=== PATIENT | female | born 1960 | race Caucasian/White ===

== ENCOUNTER 2016-11-13 19:40 | Emergency (ER) | payer OTHER ==
--- NOTE | 2016-11-13 19:47 | PDOC ---
History of Present Illness - General History Source: Patient, Family Exam Limitations: No Limitations - History of Present Illness Initial Comments: 11/13/16 20:10 The patient is a 56 year old female, accompanied by , with a significant past medical history of rheumatoid arthritis and sciatica, who presents to the emergency room via EMS s/p a fall from home. The reports he returned from vacation in [place] and found his lying down on the floor and speaking in only one word syllables. The patient denies drinking and states she walked into a closet. The patient is a poor historian and not providing additional information. The reports he spoke to his on the phone approx. 6 hours ago and she was speaking and acting normally. The patient states she went to detox for alcohol within the past month. She denies chest pain or shortness of breath. Allergies: Penicillins, pregabalin <Onur Salvador - Last Filed: 11/13/16 20:32> <Lyric Wallace - Last Filed: 11/13/16 23:00> - General Chief Complaint: Alcohol intoxication Stated Complaint: POSSIBLE INTOXICATION Time Seen by Provider: 11/13/16 19:46 Past History <Onur Salvador - Last Filed: 11/13/16 20:32> <Lyric Wallace - Last Filed: 11/13/16 23:00> - Past Medical History Allergies/Adverse Reactions: Allergies Allergy/AdvReac Type Severity Reaction Status Date / Time Penicillins Allergy Verified 11/13/16 19:45 pregabalin [From Lyrica] Allergy Verified 11/13/16 19:45 Home Medications: Ambulatory Orders Adalimumab [Humira] mg SQ ASDIR 11/13/16 Methotrexate Sodium [Methotrexate] mg PO ASDIR 11/13/16 Review of Systems - Review of Systems Comments:: 11/13/16 20:19 GENERAL/CONSTITUTIONAL: No fever or chills. No weakness. HEAD, EYES, EARS, NOSE AND THROAT: No change in vision. No ear pain or discharge. No sore throat. CARDIOVASCULAR: No chest pain or shortness of breath. RESPIRATORY: No cough, wheezing, or hemoptysis. GASTROINTESTINAL: No nausea, vomiting, diarrhea or constipation. GENITOURINARY: No dysuria, frequency, or change in urination. MUSCULOSKELETAL: No joint or muscle swelling or pain. No neck or back pain. SKIN: No rash NEUROLOGIC: No headache, vertigo, loss of consciousness, or change in strength/ sensation. ENDOCRINE: No increased thirst. No abnormal weight change. HEMATOLOGIC/LYMPHATIC: No anemia, easy bleeding, or history of blood clots. ALLERGIC/IMMUNOLOGIC: No hives or skin allergy. <Onur Salvador - Last Filed: 11/13/16 20:32> *Physical Exam - Vital Signs Last Vital Signs Temp Pulse Resp BP Pulse Ox 98.4 F 86 18 94/57 11/13/16 19:40 11/13/16 19:40 11/13/16 19:40 11/13/16 19:40 - Physical Exam Comments: 11/13/16 20:19 GENERAL: +ETOH on breath. +Slurred speech. Conscious, awake, and alert. HEAD: +Ecchymosis on left cheek bone 2 cm by 1 cm. +Cut Off Saw Grader ecchymosis on right cheek bone. EYES: PERRLA, EOMI, sclera anicteric, conjunctiva clear ENT: Auricles normal inspection, hearing grossly normal, nares patent, oropharynx clear without exudates. Moist mucosa NECK: Normal ROM, supple, no lymphadenopathy, JVD, or masses EXTREMITIES: Normal range of motion, no edema. No clubbing or cyanosis. No cords, erythema, or tenderness NEUROLOGICAL: Cranial nerves II through XII grossly intact. Normal speech, normal gait SKIN: Warm, Dry, normal turgor, no rashes or lesions noted. <Onur Salvador - Last Filed: 11/13/16 20:32> ED Treatment Course - LABORATORY CBC & Chemistry Diagram: 11/13/16 20:15 11/13/16 20:15 <Onur Salvador - Last Filed: 11/13/16 20:32> - LABORATORY CBC & Chemistry Diagram: 11/13/16 20:15 11/13/16 20:15 - ADDITIONAL ORDERS Additional order review: 11/13/16 22:20 dehydratyed; pt receieved IVF in the ER <Lyric Wallace - Last Filed: 11/13/16 23:00> Medical Decision Making - Medical Decision Making 11/13/16 22:20 Pt comes with alcohol intox. brought in by who found her on the floor of their home drunk. SHe has a bruise on her cheekbone and states that she bumped into her closet at home and injured face. She is alert and oriented and she is slurring speech as she is drunk/ Iniotially refusing labs and CT scans. Labs were finally done as she acquiesced. Her alcohol level is 358; other labs normal. Dehydrated and she received IVF. Pt is well nourished. states that her drinking has gotten worse and he is worried that she is taking percocets as well. Pt refusing CT scan of the head anc face, and agrees that this is all likely due to alcohol. He agrees to take her home and care for her. Pt signed out in 's care. They understand that pt may have aspiration adn vomiting and that she is still intoxicated. Pt ambulating and refusing to stay in the ER. signed her out and called back to find out her ETOH level. He ahs taken responsibility for the patient. <Lyric Wallace - Last Filed: 11/13/16 23:00> *DC/Admit/Observation/Transfer - Attestations Scribe Attestion: 11/13/16 20:25 Documentation prepared by Onur Salvador, acting as medical services manager for Lyric Wallace MD. <Onur Salvador - Last Filed: 11/13/16 20:32> - Discharge Dispostion Admit: No <Lyric Wallace - Last Filed: 11/13/16 23:00> Diagnosis at time of Disposition: Alcohol abuse - Discharge Dispostion Disposition: HOME Condition at time of disposition: Stable - Patient Instructions Printed Discharge Instructions: DI for Alcohol Abuse
[2016-11-13 19:54] VITALS: BP 94/57; PULSE 86; TEMP 98.4; BMI 24.3
[2016-11-13] MEDS ORDERED: SODIUM CHLORIDE 0.9% 500 ML INFUS.BAG IV ONE (20:24)
[2016-11-13 20:34] LABS: BASOPHIL 1.6 % (0-2.0); EOSINOPHIL 2.5 % (0-4.5); MCH 32.4 pg (25.7-33.7); MCHC 33.8 g/dl (32.0-36.0); MEAN PLT VOLUME 7.6 fl (7.5-11.1); NEUTROPHILS 55.4 % (42.8-82.8); PLATELET COUNT 292 K/MM3 (134-434); RDW 13.2 % (11.6-15.6); WHITE BLOOD COUNT 9.2 K/mm3 (4.0-10.8)
[2016-11-13 21:00] LABS: ALBUMIN 4.3 g/dl (3.5-5.0); ALK PHOS 76 U/L (32-92); ANION GAP 3 (8-16); BILIRUBIN,TOTAL 0.4 mg/dl (0.2-1.0); CALCIUM 9.6 mg/dl (8.4-10.2); CO2 28 mmol/L (22-28); CREATININE 0.6 mg/dl (0.6-1.3); GLUCOSE,RANDOM 96 mg/dl (74-106); SGOT/AST 51 U/L (10-42); SGPT/ALT 40 U/L (10-40); TOT PROT 6.8 g/dl (6.4-8.3)
== END 2016-11-13 21:15 | disposition home or self-care (01) ==
LOC: FER 19:40
PROC: 3E0337Z Introduction of Electrolytic and Water Balance Substance into Peripheral Vein, Percutaneous Approach (ICD-10-PCS; principal; 2016-11-13)
DX: F10.10 Alcohol abuse, uncomplicated (principal); M06.9 Rheumatoid arthritis, unspecified
CPT/HCPCS: 36415; 80053; 80307; 85025; 99285-25